=== PATIENT | female | born 1970 | race African-American/Black ===

== ENCOUNTER 2021-03-10 12:18 | Emergency (ER) | payer SELFPAY ==
[2021-03-10 15:32] LABS: SARS-COV-2 RT PCR POSITIVE (NEGATIVE)
--- NOTE | 2021-03-10 15:56 | EDPHYS ---
Physician Documentation [facility] Name: Soraya Martínez Age: 50 yrs Sex: Female : 1970 Arrival Date: 03/10/2021 Time: 12:21 Bed 17 Private MD: ED Physician Toni Byers HPI: 03/11 07:30 This 50 yrs old Black Female presents to ER via Ambulatory with complaints of Weakness. kdr 07:34 Patient had generalized malaise and subjective fever for the past couple of days. She kdr is concerned that she may have Covid. Onset: The symptoms/episode began/occurred gradually, 2 day(s) ago. Severity of symptoms: At their worst the symptoms were mild in the emergency department the symptoms are unchanged. The patient has not experienced similar symptoms in the past. The patient has not recently seen a physician. Patient states that she has had headache for 2 days and body aches. She is also had a little cough that was nonproductive since yesterday. Patient otherwise in her usual state of health and nontoxic-appearing. Historical: - Allergies: 03/10 12:45 No Known Allergies; iw - Home Meds: 12:45 losartan-hydrochlorothiazide oral once daily [Active]; iw - PMHx: 12:45 Hypertensive disorder; iw - PSHx: 12:45 None; iw - Immunization history:: Client reports having NOT received the Covid vaccine. - Social history:: Smoking status: Patient reports the use of cigarette tobacco products, denies chronic smoking, but will smoke occasionally. ROS: 03/11 07:34 Constitutional: Negative for fever, chills, and weight loss, Eyes: Negative for injury, kdr pain, redness, and discharge, Neck: Negative for injury, pain, and swelling, Cardiovascular: Negative for chest pain, palpitations, and edema, Abdomen/GI: Negative for abdominal pain, nausea, vomiting, diarrhea, and constipation, Back: Negative for injury and pain, : Negative for injury, bleeding, discharge, and swelling, MS/Extremity: Negative for injury and deformity, Skin: Negative for injury, rash, and discoloration, Neuro: Negative for headache, weakness, numbness, tingling, and seizure activity. Psych: Negative for depression, anxiety, suicide ideation, homicidal ideation, and hallucinations, Allergy/Immunology: Negative for hives, rash, and allergies, Endocrine: Negative for neck swelling, polydipsia, polyuria, polyphagia, and marked weight changes, Hematologic/Lymphatic: Negative for swollen nodes, abnormal bleeding, and unusual bruising. Respiratory: Positive for cough, with no reported sputum, shortness of breath, Negative for dyspnea on exertion, hemoptysis, orthopnea, pleurisy, wheezing. Exam: 07:34 Constitutional: This is a well developed, well nourished patient who is awake, alert, kdr and in no acute distress. Head/Face: Normocephalic, atraumatic. Eyes: Pupils equal round and reactive to light, extra-ocular motions intact. Lids and lashes normal. Conjunctiva and sclera are non-icteric and not injected. Cornea within normal limits. Periorbital areas with no swelling, redness, or edema. Neck: Trachea midline, no thyromegaly or masses palpated, and no cervical lymphadenopathy. Supple, full range of motion without nuchal rigidity, or vertebral point tenderness. No Meningismus. Chest/axilla: Normal chest wall appearance and motion. Nontender with no deformity. No lesions are appreciated. Cardiovascular: Regular rate and rhythm with a normal S1 and S2. No gallops, murmurs, or rubs. Normal PMI, no JVD. No pulse deficits. Abdomen/GI: Soft, non-tender, with normal bowel sounds. No distension or tympany. No guarding or rebound. No evidence of tenderness throughout. Back: No spinal tenderness. No costovertebral tenderness. Full range of motion. Skin: Warm, dry with normal turgor. Normal color with no rashes, no lesions, and no evidence of cellulitis. MS/ Extremity: Pulses equal, no cyanosis. Neurovascular intact. Full, normal range of motion. Neuro: Awake and alert, GCS 15, oriented to person, place, time, and situation. Cranial nerves II-XII grossly intact. Motor strength 5/5 in all extremities. Sensory grossly intact. Cerebellar exam normal. Normal gait. Psych: Awake, alert, with orientation to person, place and time. Behavior, mood, and affect are within normal limits. 07:34 Respiratory: the patient does not display signs of respiratory distress, Respirations: normal, Breath sounds: rales, rhonchi, that are mild, are scattered. Vital Signs: 03/10 12:43 BP 112 / 92; Pulse 95; Resp 16; Temp 97.8; Pulse Ox 100% on R/A; Weight 75.75 kg; iw Height 5 ft. 6 in. (167.64 cm); 12:43 Body Mass Index 26.95 (75.75 kg, 167.64 cm) iw MDM: 15:55 Patient medically screened. kdr 03/11 07:34 Data reviewed: vital signs, nurses notes, lab test result(s), radiologic studies. kdr Counseling: I had a detailed discussion with the patient and/or guardian regarding: the historical points, exam findings, and any diagnostic results supporting the discharge/admit diagnosis, lab results, radiology results, the need for outpatient follow up. ED course: Patient was nontoxic-appearing and otherwise stable. 03/10 12:50 Order name: COVID-19/FLU A+B (Document "Date of Onset" if Symptomatic); Complete Time: iw 15:40 Administered Medications: No medications were administered Disposition Summary: 03/10/21 15:55 Discharge Ordered Location: Home kdr Problem: new kdr Symptoms: have improved kdr Condition: Stable kdr Diagnosis - Weakness kdr - SARS-associated coronavirus as the cause of diseases classified elsewhere kdr Followup: kdr - With: Private Physician - When: 2 - 3 days - Reason: If symptoms return, Further diagnostic work-up, Recheck today's complaints, Continuance of care, Re-evaluation by your physician Discharge Instructions: - Discharge Summary Sheet kdr - Weakness, [id number] kdr - COVID-19 kdr - 10 Things You Can Do to Manage Your COVID-19 Symptoms at Home - [facility] kdr - COVID-19: Quarantine vs. Isolation - [facility] kdr - Prevent the Spread of COVID-19 if You Are Sick - [facility] kdr Forms: - Medication Reconciliation Form kdr - Thank You Letter kdr Signatures: Dispatcher [employer] EDMS Toni Byers MD MD kdr Vee Jimenez RN RN iw
--- NOTE | 2021-03-10 15:56 | ER ---
[facility] Name: Soraya Martínez Age: 50 yrs Sex: Female : 1970 Arrival Date: 03/10/2021 Time: 12:21 Bed 17 Private MD: Diagnosis: Weakness;SARS-associated coronavirus as the cause of diseases classified elsewhere Presentation: 03/10 12:43 Chief complaint: Patient states: little cough yesterday , headache X 2 days, body iw aches. Coronavirus screen: Client presents with at least one sign or symptom that may indicate coronavirus-19. Ebola Screen: Patient negative for fever greater than or equal to 101.5 degrees Fahrenheit, and additional compatible Ebola Virus Disease symptoms Patient denies exposure to infectious person. Patient denies travel to an Ebola-affected area in the 21 days before illness onset. No symptoms or risks identified at this time. Initial Sepsis Screen: Does the patient meet any 2 criteria? No. Patient's initial sepsis screen is negative. Does the patient have a suspected source of infection? No. Patient's initial sepsis screen is negative. Risk Assessment: Do you want to hurt yourself or someone else? Patient reports no desire to harm self or others. Onset of symptoms was March 08, 2021. 12:43 Method Of Arrival: Ambulatory iw 12:43 Acuity: MADELYN 3 iw Historical: - Allergies: 12:45 No Known Allergies; iw - Home Meds: 12:45 losartan-hydrochlorothiazide oral once daily [Active]; iw - PMHx: 12:45 Hypertensive disorder; iw - PSHx: 12:45 None; iw - Immunization history:: Client reports having NOT received the Covid vaccine. - Social history:: Smoking status: Patient reports the use of cigarette tobacco products, denies chronic smoking, but will smoke occasionally. Assessment: 15:53 Reassessment: Pt upset about having COVID and just walked out. Pt did not want to wait jh5 for paperwork and states; "I already know what I came here for. I got COVID". and when asked if she wanted to stay for paperwork; she said "no" and continued to he door. Vital Signs: 12:43 BP 112 / 92; Pulse 95; Resp 16; Temp 97.8; Pulse Ox 100% on R/A; Weight 75.75 kg; iw Height 5 ft. 6 in. (167.64 cm); 12:43 Body Mass Index 26.95 (75.75 kg, 167.64 cm) iw ED Course: 12:21 Patient arrived in ED. mr 12:45 Triage completed. iw 12:46 Arm band placed on. iw 13:07 Toni Byers MD is Attending Physician. kdr 14:20 Amparo Astudillo, RN is Primary Nurse. [facility] Administered Medications: No medications were administered Outcome: 15:55 Discharge ordered by . kdr 16:00 Patient left the ED. jh5 Signatures: Toni Byers MD MD [facility] Cathy Black mr Vee Jimenez, TAMIKO MORRISON Amparo Astudillo RN RN [facility]
[2021-03-10 16:06] VITALS: BP 112/92; TEMP 97.8; O2SAT 100
== END 2021-03-10 16:00 | disposition home or self-care (01) ==
LOC: ER 12:18
DX: U07.1 COVID-19 (principal); I10 Essential (primary) hypertension; Z72.0 Tobacco use
CPT/HCPCS: 0240U; 99281

== ENCOUNTER 2023-02-05 14:45 | Emergency (ER) | payer BC ==
[2023-02-05 15:52] LABS: Absolute Lymphocytes (CBC) 1.5 K/uL (0.7-4.9); Hematocrit 37.8 % (36.0-45.0); Lymphocytes % 23.4 % (15.3-44.8); MCV 94.3 fL (80-100); MPV 8.4 fL (7.6-11.3); Platelets 206 thou/uL (152-406); RBC Red Blood Cell Count 4.01 M/uL (3.86-4.86)
[2023-02-05] MEDS ORDERED: GABAPENTIN 300 MG CAP ONE (15:56)
[2023-02-05 16:08] LABS: Albumin 3.7 g/dL (3.4-5.0); Bilirubin Direct 0.2 mg/dL (0-0.2); Bilirubin Indirect, Calculated 0.3 mg/dL (0.2-0.8); Bilirubin Total 0.5 mg/dL (0.2-1.0); Magnesium 1.9 mg/dL (1.6-2.4); Potassium 3.7 mEq/L (3.5-5.1); Protein, Total 7.1 g/dL (6.4-8.2); Troponin High Sensitivity 6.9 pg/mL (<58.9)
--- NOTE | 2023-02-05 16:44 | RAD REPORT ---
EXAM DESCRIPTION: CT - Head Brain Wo Cont - 02/05/2023 4:39 pm CLINICAL HISTORY: NUMBNESS Headache, drowsiness COMPARISON: <Comparisons> TECHNIQUE: All CT scans are performed using dose optimization technique as appropriate and may inclu de automated exposure control or mA/KV adjustment according to patient size. FINDINGS: No intracranial hemorrhage, hydrocephalus or extra-axial fluid collection.No areas of brai n edema or evidence of midline shift. The paranasal sinuses and mastoids are clear. The calvarium is intact. IMPRESSION: No acute intracranial abnormality.
--- NOTE | 2023-02-05 17:23 | ER ---
Nurse's Notes [facility] Name: Soraya Martínez Age: 52 yrs Sex: Female : 1970 Arrival Date: 02/05/2023 Time: 14:45 Bed 16 Private MD: Diagnosis: Polyneuropathy, unspecified Presentation: 02/05 14:51 Chief complaint: Patient states: she has been having bilateral hand and finger numbness ap3 for approx 2 weeks, which is not improving. Patient states that approx 2 days ago, she started noticing dry skin on her hands as well. Coronavirus screen: At this time, the client does not indicate any symptoms associated with coronavirus-19. Ebola Screen: No symptoms or risks identified at this time. Initial Sepsis Screen: Does the patient meet any 2 criteria? No. Patient's initial sepsis screen is negative. Does the patient have a suspected source of infection? No. Patient's initial sepsis screen is negative. Risk Assessment: Do you want to hurt yourself or someone else? Patient reports no desire to harm self or others. Onset of symptoms was January 22, 2023. 14:51 Method Of Arrival: Ambulatory ap3 14:51 Acuity: MADELYN 3 ap3 Triage Assessment: 14:53 General: Appears in no apparent distress. Behavior is calm, cooperative, appropriate ap3 for age. Pain: Complains of pain in right hand and left hand Pain began gradually, 2 weeks ago. Neuro: Level of Consciousness is awake, alert, obeys commands, Oriented to person, place, time, situation, Appropriate for age. Neuro: Reports numbness in right hand and left hand. Cardiovascular: Patient's skin is warm and dry. Respiratory: Airway is patent Respiratory effort is even, unlabored, Respiratory pattern is regular, symmetrical. INKER: 14:54 LMP N/A - Post-menopause, Not ap3 Historical: - Allergies: 14:53 No Known Allergies; ap3 - Home Meds: 14:53 losartan-hydrochlorothiazide Oral once daily [Active]; ap3 - PMHx: 14:53 Hypertensive disorder; ap3 - Immunization history:: Client reports having NOT received the Covid vaccine. Flu vaccine is not up to date. - Social history:: Smoking status: Patient reports the use of cigarette tobacco products, denies chronic smoking, but will smoke occasionally. Screenin:54 [facility] ED Fall Risk Assessment (Adult) History of falling in the last 3 months, ap3 including since admission No falls in past 3 months (0 pts). Abuse screen: Denies threats or abuse. Nutritional screening: No deficits noted. Tuberculosis screening: No symptoms or risk factors identified. Assessment: 15:39 General: Appears in no apparent distress. Behavior is calm, cooperative. Pain: ld1 Complains of pain in right hand and left hand Quality of pain is described as numb. 15:40 Pain: Pain began two weeks ago. Neuro: Level of Consciousness is awake, alert, obeys ld1 commands, Oriented to person, place, time, situation. Cardiovascular: Capillary refill < 3 seconds Patient's skin is warm and dry. Respiratory: Airway is patent Respiratory effort is even, unlabored, Respiratory pattern is regular, symmetrical. GI: Abdomen is flat, non-distended. : No signs and/or symptoms were reported regarding the genitourinary system. EENT: No signs and/or symptoms were reported regarding the EENT system. Derm: No signs and/or symptoms reported regarding the dermatologic system. Musculoskeletal: Reports numbness in right hand and left hand Parent/caregiver report the patient having. 16:15 Reassessment: Patient appears in no apparent distress at this time. Patient and/or ld1 family updated on plan of care and expected duration. Pain level reassessed. Patient is alert, oriented x 3, equal unlabored respirations, skin warm/dry/pink. 16:56 Reassessment: Patient appears in no apparent distress at this time. Patient and/or tm6 family updated on plan of care and expected duration. Pain level reassessed. Patient is alert, oriented x 3, equal unlabored respirations, skin warm/dry/pink. Vital Signs: 14:51 BP 154 / 94; Pulse 92; Resp 17; Temp 97.9; Pulse Ox 100% ; Weight 79.38 kg; Pain 10/10; ap3 15:40 BP 154 / 132; Pulse 73; Resp 17; Temp 97.9(O); Pulse Ox 99% on R/A; ld1 16:15 BP 156 / 110; Pulse 89; Pulse Ox 99% on R/A; ld1 16:56 Pulse 68; Pulse Ox 100% on R/A; tm6 14:51 Pain Scale: Adult ap3 ED Course: 14:46 Patient arrived in ED. rg4 14:53 Triage completed. ap3 14:54 Arm band placed on right wrist. ap3 15:20 Farhana Johnson [facility]C [facility]. sb4 15:20 Amish Jernigan MD is Attending Physician. sb4 15:29 Mary Alice Howard, RN is Primary Nurse. ld1 15:39 Inserted saline lock: 20 gauge in left antecubital area, using aseptic technique. ld1 15:40 Bed in low position. Call light in reach. Side rails up X2. Provided Education on: on ld1 medications. Client placed on continuous cardiac and pulse oximetry monitoring. NIBP monitoring applied. Door closed. Warm blanket given. 15:40 No provider procedures requiring assistance completed. ld1 16:41 CT Head Brain wo Cont In Process Unspecified. EDMS 17:40 IV discontinued, intact, bleeding controlled, No redness/swelling at site. Pressure tm6 dressing applied. Administered Medications: 15:43 Drug: Gabapentin PO 300 mg PO once Route: PO; ld1 Medication: 15:40 VIS not applicable for this client. ld1 Outcome: 17:22 Discharge ordered by . sb4 17:39 Discharged to home ambulatory, tm6 17:39 Condition: stable 17:39 Discharge instructions given to patient, Instructed on discharge instructions, follow up and referral plans. medication usage, Demonstrated understanding of instructions, follow-up care, medications, Prescriptions given X 2, 17:40 Patient left the ED. tm6 Signatures: Dispatcher [employer] Ramya Sanchez rg4 Vilma Steele RN RN ap3 Mary Alice Howard, RN RN ld1 Farhana Johnson PA-C PA-C sb4 Mary Rowell RN RN tm6 Corrections: (The following items were deleted from the chart) 16:16 16:15 BP 156 / 110; Pulse 65bpm; Pulse Ox 99% RA; ld1 ld1
--- NOTE | 2023-02-05 17:23 | EDPHYS ---
Physician Documentation [facility] Name: Soraya Martínez Age: 52 yrs Sex: Female : 1970 Arrival Date: 02/05/2023 Time: 14:45 Bed 16 Private MD: BRADEN Physician Amish Jernigan HPI: 02/05 15:54 This 52 yrs old Black Female presents to ER via Ambulatory with complaints of Numbness sb4 Of Hand. 02/06 01:12 patient states that she has had increasing numbness in her bilateral hands over the sb4 past 2 weeks. she states the numbness/tingling initially started in her ring and pinky finger but slowly has extended to her entire hand. she additionally states that the palms of her hands have started to itch. she has tried Benadryl for the symptoms without much improvement. she denies any weakness, slurred speech, difficulty swallowing, leg numbness. 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 Flu vaccine is not up to date. - Social history:: Smoking status: Patient reports the use of cigarette tobacco products, denies chronic smoking, but will smoke occasionally. ROS: 02/06 01:19 Constitutional: Negative for fever, chills, and weight loss, sb4 Neuro: Positive for numbness, tingling, All other systems are negative, Exam: 01:19 Constitutional: This is a well developed, well nourished patient who is awake, alert, sb4 and in no acute distress. Head/Face: Normocephalic, atraumatic. Eyes: Extra-ocular motions intact. Periorbital areas with no swelling, redness, or edema. ENT: Mucous membranes moist. Cardiovascular: Regular rate and rhythm with a normal S1 and S2. Respiratory: Lungs have equal breath sounds bilaterally, clear to auscultation and percussion. No rales, rhonchi or wheezes noted. No increased work of breathing, no retractions or nasal flaring. Abdomen/GI: Soft, non-tender, no distension. Skin: Warm, dry with normal turgor. Normal color with no rashes, no lesions, and no evidence of cellulitis. MS/ Extremity: Pulses equal, no cyanosis. Neurovascular intact. Full, normal range of motion. 01:19 Neuro: Exam negative for focal neuro deficits, motor deficits, cerebellar deficits, altered mental status, confusion, dizziness, dysarthria, gait abnormality, Sensation: numbness, that is moderate, of the left hand and right hand, Vital Signs: 02/05 14:51 BP 154 / 94; Pulse 92; Resp 17; Temp 97.9; Pulse Ox 100% ; Weight 79.38 kg; Pain 10/10; ap3 15:40 BP 154 / 132; Pulse 73; Resp 17; Temp 97.9(O); Pulse Ox 99% on R/A; ld1 16:15 BP 156 / 110; Pulse 89; Pulse Ox 99% on R/A; ld1 16:56 Pulse 68; Pulse Ox 100% on R/A; tm6 14:51 Pain Scale: Adult ap3 MDM: 15:20 Patient medically screened. sb4 02/06 01:19 Differential diagnosis: neuropathy, CVA, hyperglycemia, hypokalemia. Data reviewed: sb4 vital signs, nurses notes, lab test result(s), radiologic studies, and as a result, I will discharge patient. Care significantly affected by the following chronic conditions: Hypertension. Counseling: I had a detailed discussion with the patient and/or guardian regarding the historical points, exam findings, and any diagnostic results supporting the discharge/admit diagnosis, the presence of at least one elevated blood pressure reading (>120/80) during this emergency department visit, lab results, radiology results, to return to the emergency department if symptoms worsen or persist or if there are any questions or concerns that arise at home. 02/05 15:27 Order name: Basic Metabolic Panel; Complete Time: 16:13 sb4 02/05 15:27 Order name: CBC with Diff; Complete Time: 16:01 sb4 02/05 15:27 Order name: Hepatic Function; Complete Time: 16:13 sb4 02/05 15:27 Order name: Magnesium; Complete Time: 16:13 sb4 02/05 15:27 Order name: Troponin High Sensitivity; Complete Time: 16:13 sb4 02/05 15:27 Order name: CT Head Brain wo Cont; Complete Time: 16:50 sb4 02/05 15:27 Order name: IV Saline Lock; Complete Time: 15:39 sb4 02/05 15:27 Order name: Labs collected and sent; Complete Time: 15:39 sb4 Administered Medications: 02/05 15:43 Drug: Gabapentin PO 300 mg PO once Route: PO; ld1 Disposition Summary: 02/05/23 17:22 Discharge Ordered Notes: Location: Home sb4 Problem: an ongoing problem sb4 Symptoms: have improved sb4 Condition: Stable sb4 Diagnosis - Polyneuropathy, unspecified sb4 Followup: sb4 - With: Emergency Department - When: As needed - Reason: Trouble breathing, Worsening of condition Discharge Instructions: - Discharge Summary Sheet sb4 - Peripheral Neuropathy sb4 Forms: - Medication Reconciliation Form sb4 - Thank You Letter sb4 - Antibiotic Education sb4 - Prescription Opioid Use sb4 - Patient Portal Instructions sb4 - Leadership Thank You Letter sb4 Prescriptions: - gabapentin 300 mg Oral capsule - take 1 capsule ORAL route every 8 hours; 12 capsule; Refills: 0, Product sb4 Selection Permitted - Prednisone 20 mg Oral Tablet - take 1 tablet ORAL route every 12 hours for 5 days; 10 tablet; Refills: 0, sb4 Product Selection Permitted Signatures: Dispatcher [employer] Vilma Velasco RN RN ap3 Mary Alice Howard RN RN ld1 Farhana Johnson PA-C PA-C sb4
[2023-02-05 17:51] VITALS: TEMP 97.9
[2023-02-05 18:03] VITALS: BP 156/110
[2023-02-05 18:08] VITALS: O2SAT 100
== END 2023-02-05 17:40 | disposition home or self-care (01) ==
LOC: ER 14:45
DX: G62.9 Polyneuropathy, unspecified (principal); I10 Essential (primary) hypertension; Z79.899 Other long term (current) drug therapy; F17.210 Nicotine dependence, cigarettes, uncomplicated
CPT/HCPCS: 36415; 70450; 80048; 80076; 83735; 84484; 85025; 99284

== ENCOUNTER 2023-10-25 17:29 | Emergency (ER) | payer OTHER ==
--- NOTE | 2023-10-25 18:24 | RAD REPORT ---
EXAM DESCRIPTION: RAD - Shoulder Right 2 View - 10/25/2023 6:06 pm CLINICAL HISTORY: PAIN COMPARISON: none FINDINGS/IMPRESSION: No acute fracture. No dislocation . Small ossification adjacent to the greater tuberosity may represent calcific tendinitis.
--- NOTE | 2023-10-25 18:25 | RAD REPORT ---
EXAM DESCRIPTION: RAD - Lumbar Spine 3 Views - 10/25/2023 6:06 pm CLINICAL HISTORY: PAIN COMPARISON: No comparisons FINDINGS/IMPRESSION: No acute fracture. Trace retrolisthesis of L3 on L4 and L4 on L5 . Moderate dis c height loss at L5-S1 and mild disc height loss at L3-4 and L4-5. Mild thoracolumbar curvature .
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
[2023-10-25 19:53] VITALS: BP 165/99; TEMP 97.3; O2SAT 99
== END 2023-10-25 19:45 | disposition home or self-care (01) ==
LOC: ER 17:29
DX: M54.50 Low back pain, unspecified (principal); M25.511 Pain in right shoulder; V49.40XA Driver injured in collision with unspecified motor vehicles in traffic accident, initial encounter
CPT/HCPCS: 72100